=== PATIENT | female | born 1990 | race African-American/Black ===

== ENCOUNTER 2017-03-25 19:02 | Emergency (ER) | payer OTHER ==
[~2017-03-25] VITALS: Ht 172.7 cm; Wt 61.2 kg
--- NOTE | 2017-03-25 19:23 | NUR ---
PT A/OX4 BREATHING EFFORTLESSLY ON ROOM AIR, PT STATES SHE HAS BEEN HAVING ABD PAIN WITH N/V X 1 DAY AND BEEN HVAING DIARRHEA X 4 DAYS, PT ON MONITOR IN GOWN, PT FAMILY IS AT BEDSIDE, [place] IS AT BEDSIDE WILL CONTINUE TO MONITOR.
[2017-03-25] MEDS ORDERED: ONDANSETRON 4 MG TAB.RAPDIS ONE (20:08)
[2017-03-25] MEDS ORDERED: CIPROFLOXACIN HCL 500 MG TABLET ONE (20:08)
[2017-03-25] MEDS ORDERED: IBUPROFEN 600 MG TABLET PO ONE (20:08)
[2017-03-25] MEDS: CIPROFLOXACIN HCL 250 MG TABLET PO ONE (20:12)
[2017-03-25] MEDS: ONDANSETRON 4 MG TAB.RAPDIS SL ONE (20:12)
[2017-03-25] MEDS: IBUPROFEN 600 MG TABLET PO ONE (20:12)
[2017-03-25 20:33] VITALS: BP 128/76
--- NOTE | 2017-03-25 20:33 | NUR ---
Patient discharged to home in stable condition. Written, text and verbal after care instructions given. Patient text understanding of instruction.
== END 2017-03-25 20:35 | disposition home or self-care (01) ==
LOC: ER 19:05
DX: R19.7 Diarrhea, unspecified (principal); R11.2 Nausea with vomiting, unspecified; H90.5 Unspecified sensorineural hearing loss
CPT/HCPCS: A4606; Q0162; Z7610